=== PATIENT | female | born 1980 | race Hispanic/Latino ===

== ENCOUNTER 2022-03-25 18:39 | Emergency (ER) | payer OTHER, SELFPAY ==
--- NOTE | ~2022-03-25 | US_ITS ---
EXAMINATION: US pelvic complete w TV DATE: 03/25/2022 21:38 INDICATION: Left pelvic pain. Spotting. TECHNIQUE: Multiple transabdominal and transvaginal sonographic images of the pelvis were obtained. COMPARISON: None. FINDINGS: TRANSABDOMINAL ULTRASOUND: The uterus measures 8.4 x 5.1 x 4.9 cm. There is physiologic free fluid in the pelvis. TRANSVAGINAL ULTRASOUND: The endometrial complex measures 8 mm in thickness. The right ovary measures 2.0 x 2.0 x 1.7 cm. The left ovary measures 2.9 x 3.3 x 2.2 cm. There is normal vascular flow in the ovaries. IMPRESSION: 1. Normal pelvis. Reviewed, dictated and finalized at location A. IMPRESSION: 1. Normal pelvis.
[2022-03-25 18:49] VITALS: BP 133/61; PULSE 75; RESP 16; TEMP 36.6; O2SAT 100
[2022-03-25 19:05] LABS: Basophils Percent Auto 0.3 % (0.2-1.2); Eosinophils Percent Auto 0.4 % (0-4.4); Hematocrit 39.6 % (37.0-47.0); Hemoglobin 13.3 g/dL (12.0-15.0); Immature Granulocyte Absolute 0.02 K/mm3 (0.00-0.031); Immature Granulocyte Percent A 0.3 % (0-0.5); Lymphocytes Absolute Auto 2.59 K/mm3 (0.9-3.2); Lymphocytes Percent Auto 35.6 % (18.3-44.2); Mean Corpuscular HGB Conc 33.6 g/dl (32-36); Mean Corpuscular Hemoglobin 33.5 pg (26-34); Mean Corpuscular Volume 99.7 fl (80-100); Monocytes Absolute Auto 0.4 K/mm3 (0.1-0.6); Monocytes Percent Auto 5.8 % (2.6-8.5); Neutrophils Absolute Auto 4.2 K/mm3 (1.3-6.7); Neutrophils Percent Auto 57.6 % (45.5-73.1); Platelet Count Result 215 k/mm3 (150-375); Red Blood Count 3.97 M/mm3 (4.2-5.4); Red Cell Distribution Width 12.5 % (11.5-14.5); White Blood Count 7.3 K/mm3 (4.5-10.0)
[2022-03-25 19:17] LABS: Alanine Aminotransferase 17 U/L (6-35); Albumin Level 4.9 g/dL (3.5-5.1); Alkaline Phosphatase 86 U/L (38-126); Anion Gap 9 mmol/L (8-16); Aspartate Amino Transferase 30 U/L (14-36); Bilirubin,Total 0.3 mg/dL (0.2-1.3); Blood Urea Nitrogen 22 mg/dL (7-17); Calcium 9.8 mg/dL (8.4-10.2); Carbon Dioxide 30 mmol/L (22-30); Chloride 99 mmol/L (98-107); Estimated CRCL calculation 75 ml/min; Estimated Glomerular Filt Rate > 60; Glucose 109 mg/dL (65-110); Lipase 243 U/L (23-300); Potassium 4.1 mmol/L (3.4-5.0); Sodium 138 mmol/L (137-145)
--- NOTE | 2022-03-25 21:02 | ED.ABDPAIN ---
HPI - Abdominal Pain General Chief Complaint: Abdominal Pain Stated Complaint: abdominal pain Time Seen by Provider: 03/25/22 20:51 History of Present Illness HPI narrative: Patient is a 41-year-old female here for evaluation of sudden onset, left-sided pelvic pain that is described as sharp and stabbing in nature that onset about 3 hours ago. Patient denies a history of similar sensation. Her last menstrual cycle was 2 weeks ago and was normal for her, she does note that she has had some vaginal spotting over the past 2 days which is abnormal, denies history of bleeding in between cycles. Notes her normal amount of vaginal discharge. she contacted her OB who recommended her come to the emergency department. She denies any vomiting, nausea, fevers, chills, diarrhea, constipation. Related Data Allergies Allergy/AdvReac Type Severity Reaction Status Date / Time No Known Allergies Allergy Verified 11/25/21 10:37 Review of Systems Review of Systems: Gen: Denies fevers or chills Eyes: Denies eye pain or visual change ENT: Denies congestion Respiratory: Denies shortness of breath or cough CV: Denies chest pain or palpitations GI: Reports left-sided abdominal/pelvic pain. denies nausea, emesis or diarrhea : Reports vaginal spotting. Denies burning, urgency, frequency or hematuria Musculoskeletal: Denies back pain or muscle pain Neuro: Denies numbness, tingling, weakness or focal weakness Skin: Denies rash Except as documented, all other systems reviewed and negative PMFSH Past Medical History Medical History Anxiety Surgical History Surgical History No pertinent past surgical history Family History Family History Other Cancer of heart Dementia Depression Hypertension Lung cancer Social History Social History Smoking status: Never smoker Alcohol intake: never Substance use: never Exam Narrative: APPEARANCE: Well appearing, no pain in distress, well-nourished. Head: Normocephalic and atraumatic. EYES: PERRLA/EOMI, conjunctivae clear NOSE: No nasal drainage EARS: External ear normal in appearance THROAT: Oropharynx is clear. Mucous membranes are moist. NECK: Supple. No adenopathy, no masses. RESPIRATORY: Airway patent, respirations nonlabored. Clear to auscultation bilaterally, no rales, rhonchi, wheezing. CARDIOVASCULAR: Regular rate and rhythm without murmurs, rubs, or gallops. ABDOMINAL: Mild left-sided abdominal tenderness. Normoactive bowel sounds. Soft, nondistended. No rebound tenderness or guarding. : patient refused pelvic exam MUSCULOSKELETAL: Extremities are warm and well-perfused. Moves all extremities well. No edema. NEURO: Normal speech. No focal neurologic deficits. SKIN: Skin is warm and dry. No rashes. PSYCHIATRIC: Normal affect/mood. Course Vital Signs Vital signs: Vital Signs Temperature 97.9 F 03/25/22 18:49 Pulse Rate 75 03/25/22 18:49 Respiratory Rate 16 03/25/22 18:49 Blood Pressure 133/61 03/25/22 18:49 Pulse Oximetry 100 03/25/22 18:49 Oxygen Delivery Room Air 03/25/22 18:49 Temperature 97.9 F 03/25/22 18:49 Pulse Rate 75 03/25/22 22:34 Respiratory Rate 16 03/25/22 22:34 Blood Pressure 107/61 03/25/22 22:34 Pulse Oximetry 97 03/25/22 22:34 Oxygen Delivery Room Air 03/25/22 18:49 MDM - Abdominal Pain MDM Narrative Medical decision making narrative: 41 year old female here for evaluation of left sided pelvic pain over the past day with some menstrual spotting. Here, she is nontoxic-appearing with normal vital signs. She had slight tenderness in the left lower abdominal region. Considered ovarian cyst, ovarian torsion, ectopic , feel less likely to be GI related as patient ellis
[2022-03-25 21:11] LABS: Appearance Urine Clear (Clear); Bilirubin Urine Negative (Negative); Blood Urine Negative (Negative); Color Urine Yellow (Yellow); Glucose Urine UA Negative (Negative); Ketones Urine Trace mg/dL (Negative); Leukocyte Esterase Ur Trace LEU/UL (Negative); Nitrate Urine Negative (Negative); Protein Urine Negative (Negative); Specific Grav Ur 1.015 (1.001-1.035); Urobilinogen Urine 0.2 mg/dL (<2.0)
[2022-03-25 21:15] LABS: Squamous Epithelial Cell Urine Occasional /hpf (Few); WBC Urine 0-3 /hpf
[2022-03-25 21:16] LABS: Add Urine Microscopic? YES
[2022-03-25 22:34] VITALS: BP 107/61; PULSE 75; RESP 16; O2SAT 97
== END 2022-03-25 22:36 | disposition home or self-care (01) ==
PROVIDERS: Emergency Medicine; Emergency Provider Emergency Medicine; PCP Internal Medicine
DX: N93.8 Other specified abnormal uterine and vaginal bleeding (principal)
CPT/HCPCS: 36415; 76830; 76856; 80053; 81001; 81025; 83690; 85025; 99284

== ENCOUNTER 2022-04-16 09:17 | Emergency (ER) | payer OTHER, SELFPAY ==
--- NOTE | 2022-04-16 09:23 | ED.URI ---
HPI - URI/Sore Throat General Chief Complaint: Ear Stated Complaint: SWOLLEN THROAT/EARACHE Time Seen by Provider: 04/16/22 09:48 Source: patient and RN notes reviewed Mode of arrival: ambulatory Limitations: no limitations History of Present Illness HPI Narrative: 41-year-old female presents with concern for 3-day history of nasal congestion, sore throat, runny nose, clogged ears. Reports her kids have had similar symptoms but there is resolved after 2 days. She denies fever, bodies, chills, sweats. Reports has been using IBU MD elicited complaint: sore throat, rhinorrhea and nasal congestion Related Data Allergies Allergy/AdvReac Type Severity Reaction Status Date / Time No Known Allergies Allergy Verified 11/25/21 10:37 Review of Systems Review of Systems: CONSTITUTIONAL: Denies malaise, chills, sweats, or fever. EYES: Denies visual changes, redness, or discharge. ENT: Reports rhinorrhea, congestion, otalgia and sore throat. CARDIOVASCULAR: Denies chest pain, palpitations, or edema. RESPIRATORY: Reports cough. Denies dyspnea. GASTROINTESTINAL: Denies abdominal pain, nausea, vomiting, diarrhea SKIN: Denies rash or itching. MUSCULOSKELETAL: Denies myalgia. NEUROLOGIC: Denies headache. All systems reviewed & are unremarkable except as noted in HPI and below PMFSH Past Medical History Medical History Anxiety Surgical History Surgical History No pertinent past surgical history Family History Family History Other Cancer of heart Dementia Depression Hypertension Lung cancer Social History Social History Smoking status: Never smoker Alcohol intake: never Substance use: never Comments At time of signature, agree with nursing past medical, surgical, social and family history. There is no relevant family history pertinent to the presenting complaint Exam Narrative: GENERAL: Nontoxic appearing and in no acute distress. HEAD: Normocephalic EYES: PERRLA, conjunctivae clear ENT: Nares clear, clear discharge. Mucous membranes moist. TM pearly wilson with sharp light reflex bilaterally; no tragal tenderness. Oropharynx not erythematous without lesions. Tonsils not enlarged and without exudate, no drooling, no hoarseness, no trismus, uvula midline. NECK: Supple. No lymphadenopathy CHEST: Clear to auscultation, breath sounds equal. No wheezing, rhonchi, rales, or stridor. No respiratory distress, speaks in full sentences. HEART: Regular rate and rhythm. No murmur heard. SKIN: Warm, dry, no rash. NEURO: Alert and oriented x3. PSYCH: Normal mood and affect Course Course Emergency Course: Patient is aware of diagnosis, understands and agrees to treatment plan. Anticipatory guidance given. Patient agrees to follow-up as directed and is aware of reasons to seek care at the emergency department. Portions of this record may have been created with voice recognition software Level of Care: Express Care Visit Vital Signs Vital signs: Reviewed. MDM - URI/Sore Throat MDM Narrative Medical decision making narrative: Differential diagnosis considered: Chen virus, strep pharyngitis, allergic rhinitis, upper respiratory tract infection, sinusitis, rhinosinusitis, nasopharyngitis. viral pharyngitis, otitis media, otitis externa, pneumonia, bronchitis, viral cough syndrome, viral syndrome, and influenza. Exam findings show no acute concerns or changes; patient is non-toxic appearing and is in no distress. Patient is appropriate for outpatient treatment and follow-up. Lab Data Attestation: I reviewed the patient's lab results. Critical Care Time Critical Care Time Critical Care Time: No Discharge Plan Discharge Clinical Impression: Upper respiratory infection Patient Dispo
[2022-04-16 09:26] VITALS: BP 105/58; PULSE 91; RESP 16; TEMP 36.5; O2SAT 100
== END 2022-04-16 10:18 | disposition home or self-care (01) ==
PROVIDERS: Emergency Provider Nurse Practitioner; PCP Internal Medicine
DX: J06.9 Acute upper respiratory infection, unspecified (principal)
CPT/HCPCS: 87081; 87804; 87880; 99213; G0463

== ENCOUNTER 2022-06-18 11:33 | Emergency (ER) | payer OTHER, SELFPAY ==
--- NOTE | 2022-06-18 12:06 | PC.NURSE ---
Patient was registered and never seen by this nurse. No provider available at this facility. Patient informed and decided to leave before triage.
[2022-06-18 12:26] VITALS: BP 120/58; PULSE 96; RESP 18; TEMP 37.2; O2SAT 100
--- NOTE | 2022-06-18 13:31 | ED.GENADULT ---
HPI - General Adult General Chief complaint: Upper Respiratory Infection Stated complaint: sore throat History of Present Illness HPI narrative: 42 y/o female. PMHx None reported. Presents to [facility] today with acute complaints of nasal congestion and sore throat, worsening > the past 4 days. She reports a recent and positive Streptococcal throat exposure prior to manifestation onset. -No rash. -No fever, neck pain. -No CAN, dizziness. -No dyspnea, dysphagia, involuntary drooling. -No N/V. She reports to feel as though she is swallowing glass at times. Related Data Allergies Allergy/AdvReac Type Severity Reaction Status Date / Time No Known Allergies Allergy Verified 06/18/22 13:23 Review of Systems Review of Systems: CONSTITUTIONAL: Denies fever, chills, sweats. EYES: Denies visual changes, redness, discharge. ENT: + rhinorrhea, congestion, sore throat. No otalgia. CARDIOVASCULAR: Denies chest pain, palpitations, edema. RESPIRATORY: Denies dyspnea, wheezing. + cough GASTROINTESTINAL: Denies abdominal pain, nausea, vomiting, diarrhea. GENITOURINARY: Denies dysuria, hematuria, abnormal discharge SKIN: Denies rash or itching. MUSCULOSKELETAL: Denies acute back pain, joint pain, or myalgia. NEUROLOGIC: Denies numbness, or focal weakness. PSYCHIATRIC: Denies anxiety or depression. PMFSH Past Medical History Medical History Anxiety Surgical History Surgical History No pertinent past surgical history Family History Family History Other Cancer of heart Dementia Depression Hypertension Lung cancer Social History Social History Smoking status: Never smoker Alcohol intake: never Substance use: never Exam Narrative: GENERAL: This is a well-nourished, well-developed adult, in no apparent distress. HEAD: normocephalic, atraumatic. EYES: PERRL. Sclera clear/white. EARS: External ears normal, auditory canals clear and without drainage, TMs normal. NOSE: External nose normal. Positive Rhinorrhea, congestion, no obstruction. THROAT: Mucous membranes moist, posterior pharynx is erythematous w/mild exudative changes. Uvula midline, palate soft, no gross swelling. NECK: Neck supple, non-tender without lymphadenopathy, masses or thyromegaly. No meningeal signs. CARDIOVASCULAR: Regular rate and rhythm without murmurs, gallops, or rubs. RESPIRATORY: Clear to auscultation. Breath sounds equal bilaterally. GASTROINTESTINAL: Abdomen soft, non-tender, nondistended. SKIN: warm, intact with no suspicious lesions or rash. NEURO: Alert, active, and age appropriate. EXTREMITIES: Negative. Course Course Level of Care: Express Care Visit Vital Signs Vital signs: Vital Signs Temperature 37.2 C 06/18/22 12:26 Pulse Rate 96 06/18/22 12:26 Respiratory Rate 18 06/18/22 12:26 Blood Pressure 120/58 L 06/18/22 12:26 Pulse Oximetry 100 06/18/22 12:26 Oxygen Delivery Room Air 06/18/22 12:26 Temperature 37.2 C 06/18/22 12:26 Pulse Rate 96 06/18/22 12:26 Respiratory Rate 18 06/18/22 12:26 Blood Pressure 120/58 L 06/18/22 12:26 Pulse Oximetry 100 06/18/22 12:26 Oxygen Delivery Room Air 06/18/22 12:26 Medical Decision Making MDM Narrative Medical decision making narrative: -No hypoxemia, no respiratory distress. -Rapid Strep: Positive. -DC to home: OP ATB regimen as directed. (Macrolide 2/2 reported PCN intolerance). -Resume home OTC remedies prn for other symptomatic reliefs. -PCP F/U 1WK. -ER W/Emergent status changes. Pt agrees. Differential Diagnosis Differential Diagnosis: Differential Diagnosis: Consideration of the following conditions may be warranted for the presenting problem, they are not final diagn
== END 2022-06-18 12:52 | disposition home or self-care (01) ==
PROVIDERS: Emergency Provider Nurse Practitioner Adult Health; PCP Internal Medicine
DX: J02.0 Streptococcal pharyngitis (principal)
CPT/HCPCS: 87880; 99213; G0463

== ENCOUNTER 2022-09-25 09:45 | Emergency (ER) | payer OTHER, SELFPAY ==
[2022-09-25 10:13] VITALS: BP 87/75; PULSE 110; RESP 16; TEMP 37.2; O2SAT 100
--- NOTE | 2022-09-25 10:52 | ED.URI ---
HPI - URI/Sore Throat General Chief Complaint: Upper Respiratory Infection Stated Complaint: SORE THROAT/BODY ACHES Time Seen by Provider: 09/25/22 10:48 Source: patient Mode of arrival: ambulatory Limitations: no limitations History of Present Illness HPI Narrative: Patient presents today complaining of a 2 day history of body aches, fever up to 100.1, and sore throat. She currently rates her pain 7/10 and has tried no [id number] treatment prior to arrival. Denies any sick contacts. Reports she was treated for strep throat in July with azithromycin. Related Data Allergies Allergy/AdvReac Type Severity Reaction Status Date / Time No Known Allergies Allergy Verified 09/25/22 10:12 Review of Systems Review of Systems: CONSTITUTIONAL: Denies chills, or sweats.+ fever, body aches EYES: Denies visual changes, redness, or discharge. ENT: Denies rhinorrhea, congestion, or otalgia.+ sore throat CARDIOVASCULAR: Denies chest pain, palpitations, or edema. RESPIRATORY: Denies cough or dyspnea. GASTROINTESTINAL: Denies abdominal pain, nausea, vomiting, or diarrhea. GENITOURINARY: Denies dysuria or hematuria. SKIN: Denies rash, itching, or wounds. MUSCULOSKELETAL: Denies back pain, joint pain, or myalgia. NEUROLOGIC: Denies headache, numbness, tingling, or weakness. PSYCH: Denies depression or anxiety. [facility] Past Medical History Medical History Anxiety Surgical History Surgical History No pertinent past surgical history Family History Family History Other Cancer of heart Dementia Depression Hypertension Lung cancer Social History Social History Smoking status: Never smoker Alcohol intake: never Substance use: never Comments At time of signature, I have reviewed and agree with nursing past medical, surgical, social and family history unless otherwise noted. Please see nursing chart for further information. There is no relevant family history pertinent to the presenting complaint Exam Narrative: GENERAL: Well-appearing, well-nourished, and in no acute distress. HEAD: Normocephalic, atraumatic. EYES: EOMI. No redness or drainage. Conjunctivae normal. ENT: Mucous membranes pink and moist. Nares clear. No rhinorrhea. TMs normal bilaterally. Throat moderate erythema and edema. No exudate. Uvula midline. NECK: Normal AROM. Supple. Bilateral anterior cervical chain lymphadenopathy. CHEST: No respiratory distress. Clear to auscultation. HEART: Regular rate and rhythm. No murmur appreciated. Normal peripheral pulses. EXTREMITIES: Normal range of motion. No edema. SKIN: Warm, dry, no rash. Capillary refill normal. Normal skin turgor. NEURO: No focal deficits. Alert and oriented x3. Gait steady. PSYCH: Normal affect. No signs of depression or anxiety. Course Course Level of Care: Express Care Visit Vital Signs Vital signs: Vital Signs Temperature 99 F 09/25/22 10:13 Pulse Rate 110 H 09/25/22 10:13 Respiratory Rate 16 09/25/22 10:13 Blood Pressure 87/75 L 09/25/22 10:13 Pulse Oximetry 100 09/25/22 10:13 Temperature 99 F 09/25/22 10:13 Pulse Rate 110 H 09/25/22 10:13 Respiratory Rate 16 09/25/22 10:13 Blood Pressure 87/75 L 09/25/22 10:13 Pulse Oximetry 100 09/25/22 10:13 Reviewed MDM - URI/Sore Throat MDM Narrative Medical decision making narrative: Rapid strep positive. Prescription for amoxicillin will be sent to pharmacy. Anticipatory guidance given. Differential Diagnosis Differential diagnosis: Likely upper respiratory infection, viral infection, pharyngitis and other (Strep throat) Lab Data Attestation: I reviewed the patient's lab results. Labs: Strep Screen Positive Group A
== END 2022-09-25 10:59 | disposition home or self-care (01) ==
PROVIDERS: Emergency Provider Nurse Practitioner; PCP Internal Medicine
DX: J02.0 Streptococcal pharyngitis (principal)
CPT/HCPCS: 87880; 99213; G0463

== ENCOUNTER → 2022-10-12 10:19 | Outpatient (CLI) | payer OTHER, SELFPAY ==
--- NOTE | ~2022-10-12 | XR_ITS ---
XR hand LT min 3V DATE: 10/12/2022 10:39 INDICATION: Fifth digit pain for 2 months. No injury. TECHNIQUE: 3 views COMPARISON: None FINDINGS: No fracture or dislocation, periosteal reaction or bone destruction, joint space narrowing, erosive change or chondrocalcinosis. IMPRESSION: Negative Reviewed, dictated and finalized at location B. OFF MAN IMPRESSION: Negative
--- NOTE | ~2022-10-12 | XR_ITS ---
XR finger 5th LT min 2V DATE: 10/12/2022 10:39 INDICATION: Fifth digit pain for 2 months TECHNIQUE: 4 views COMPARISON: None FINDINGS: No fracture or dislocation, periosteal reaction or bone destruction, joint space narrowing, erosive change. No subcutaneous emphysema or radiopaque soft tissue foreign body. IMPRESSION: Negative Reviewed, dictated and finalized at location B. ANALYSIS SUPERVISOR IMPRESSION: Negative
== END ==
PROVIDERS: PCP Internal Medicine; Visit Provider Internal Medicine
DX: S69.92XA Unspecified injury of left wrist, hand and finger(s), initial encounter (principal); X58.XXXA Exposure to other specified factors, initial encounter
CPT/HCPCS: 73130; 73140

== ENCOUNTER 2023-05-08 12:46 | Outpatient (CLI) | payer OTHER, SELFPAY ==
--- NOTE | ~2023-05-08 | US_ITS ---
Pelvic ultrasound. Clinical History: Hypertrophy of uterus Technique: Realtime transabdominal and transvaginal scanning of the pelvis was performed. Color flow Doppler and Doppler spectral analysis were performed. Findings: The uterus is anteverted, and measures 9.1 x 4.9 x 6.6 cm. The endometrial stripe has a th ickness of 19 mm. No focal mass is identified. The right ovary measures 2.4 x 1.4 x 2.0 cm. No significant right ovarian or adnexal mass is seen. The left ovary measures 1.7 x 1.8 x 1.9 cm. No significant left ovarian or adnexal mass is seen. There is no evidence of free fluid in the cul de sac. Impression: Unremarkable pelvic ultrasound. Reviewed, dictated and finalized at [facility]. Impression: Unremarkable pelvic ultrasound.
== END 2023-05-08 12:47 ==
PROVIDERS: PCP Internal Medicine; Visit Provider Obstetrics & Gynecology
DX: N85.2 Hypertrophy of uterus (principal)
CPT/HCPCS: 76830; 76856

== ENCOUNTER 2023-05-23 15:24 | Outpatient (CLI) | payer OTHER, SELFPAY ==
[2023-05-23 18:41] LABS: Alanine Aminotransferase 18 U/L (6-35); Albumin Level 4.5 g/dL (3.5-5.1); Alkaline Phosphatase 78 U/L (38-126); Anion Gap 8 mmol/L (8-16); Aspartate Amino Transferase 38 U/L (14-36); Bilirubin,Total 0.4 mg/dL (0.2-1.3); Blood Urea Nitrogen 21 mg/dL (7-17); Calcium 9.1 mg/dL (8.4-10.2); Carbon Dioxide 29 mmol/L (22-30); Chloride 101 mmol/L (98-107); Estimated Glomerular Filt Rate > 60; Glucose 101 mg/dL (65-110); Potassium 3.9 mmol/L (3.4-5.0); Sodium 138 mmol/L (137-145)
[2023-05-23 19:01] LABS: Immunoglobulin A 187 mg/dL (70-400)
[2023-05-23 19:18] LABS: Thyroid Stimulating Hormone Reflex 0.921 uIU/mL (0.465-4.68)
[2023-05-23 19:30] LABS: Basophils Percent Auto 0.2 % (0.2-1.2); Eosinophils Percent Auto 0.2 % (0-4.4); Hematocrit 39.5 % (37.0-47.0); Hemoglobin 12.8 g/dL (12.0-15.0); Immature Granulocyte Absolute 0.02 K/mm3 (0.00-0.031); Immature Granulocyte Percent A 0.2 % (0-0.5); Lymphocytes Percent Auto 23.1 % (18.3-44.2); Mean Corpuscular HGB Conc 32.4 g/dl (32-36); Mean Corpuscular Hemoglobin 33.2 pg (26-34); Mean Corpuscular Volume 102.3 fl (80-100); Mean Platelet Volume 12.1 fl (7.4-10.4); Monocytes Absolute Auto 0.4 K/mm3 (0.1-0.6); Monocytes Percent Auto 4.6 % (2.6-8.5); Neutrophils Absolute Auto 6.2 K/mm3 (1.3-6.7); Neutrophils Percent Auto 71.7 % (45.5-73.1); Platelet Count Result 238 k/mm3 (150-375); Red Blood Count 3.86 M/mm3 (4.2-5.4); Red Cell Distribution Width 12.7 % (11.5-14.5); White Blood Count 8.7 K/mm3 (4.5-10.0)
[2023-05-26 00:44] LABS: Tissue Transglutaminase IgA Ab <1.0 U/mL (<15.0)
== END 2023-05-23 15:25 | disposition home or self-care (01) ==
LOC: ANHGOSHLAB 15:25
PROVIDERS: PCP Internal Medicine; Visit Provider Emergency Medicine
DX: F41.1 Generalized anxiety disorder (principal); R19.7 Diarrhea, unspecified
CPT/HCPCS: 36415; 80053; 82784; 84443; 85025; 86364

== ENCOUNTER 2023-06-01 10:32 | Outpatient (CLI) | payer OTHER, SELFPAY ==
[2023-06-05 18:58] LABS: H pylori Ag Stool Not Detected (Not Detected)
== END 2023-06-01 10:33 | disposition home or self-care (01) ==
LOC: ANHLAB 10:34
PROVIDERS: PCP Emergency Medicine; Visit Provider Emergency Medicine
DX: R10.9 Unspecified abdominal pain (principal)
CPT/HCPCS: 87338

== ENCOUNTER 2023-06-06 15:32 | Emergency (ER) | payer OTHER, SELFPAY ==
[2023-06-06 15:41] VITALS: BP 112/65; PULSE 78; RESP 16; TEMP 36.9; O2SAT 100
--- NOTE | 2023-06-06 15:58 | ED.URI ---
HPI - URI/Sore Throat General Chief Complaint: Upper Respiratory Infection Stated Complaint: TIRED/FEVER/SORE THROAT Time Seen by Provider: 06/06/23 15:58 Source: patient, RN notes reviewed and old records reviewed Mode of arrival: ambulatory Limitations: no limitations History of Present Illness HPI Narrative: 43 year old female who presents to [facility] care with complaints of waking this morning with low grade fever 100F, congestion,yesterday evening felt stuffy and fatigued. Patient reports that kids have all been ill at home she thinks probably got something from them.Patient reports mild sore throat which she rates as 2/10. Patient has not taken any OTC medications for her complaints. MD elicited complaint: cough and sore throat Onset (ago): hour(s) (this morning) Severity: mild Pain scale (0-10): 2 Able to tolerate fluids by mouth: Yes Treatments prior to arrival: none Related Data Home Medications Medication Instructions Recorded Confirmed No Home Medications 05/03/23 05/23/23 Allergies Allergy/AdvReac Type Severity Reaction Status Date / Time No Known Allergies Allergy Verified 05/23/23 14:32 Review of Systems Review of Systems: CONSTITUTIONAL: Denies malaise, chills, sweats, low grade fever this morning. EYES: Denies visual changes, redness, or discharge. ENT: Reports rhinorrhea, congestion, no sinus pain, no otalgia and positive for sore throat. CARDIOVASCULAR: Denies chest pain, palpitations, or edema. RESPIRATORY: Reports no cough.? Denies dyspnea. GASTROINTESTINAL: Denies abdominal pain, nausea, vomiting, diarrhea SKIN: Denies rash or itching. MUSCULOSKELETAL: Denies myalgia. NEUROLOGIC: Denies headache. states fatigue All systems reviewed & are unremarkable except as noted in HPI and below PMFSH Past Medical History Medical History Anxiety BMI 27.0-27.9,adult Surgical History Surgical History No pertinent past surgical history Family History Family History Father Dementia Mother No problems noted. Sibling Hyperlipidemia Other Cancer of heart Depression Hypertension Lung cancer Social History Social History Smoking status: Never smoker Second hand tobacco smoke exposure: No Alcohol intake: never Substance use: never Substance use type: does not use Lack of Transportation: No Lack of Food: Never True Current Housing: I Have Housing Concerned About Future Housing: No Difficulty Paying Gas/Electric Bills: No Difficulty Paying for Meds: No Currently Unemployed: No Education: Bachelor's Degree Difficulty w/ Childcare or Family Care: No Living arrangements: with family Occupation/Education: occupation Additional occupation/education comments: stay at home mother Gender identity (if verbalized by the patient): Female Comments At time of signature, agree with nursing past medical, surgical, social and family history. There is no relevant family history pertinent to the presenting complaint Exam Narrative: GENERAL: Well-appearing, well-nourished, and in no acute distress. HEAD: Normocephalic EYES: PERRLA, conjunctivae clear ENT: Nares clear, turbinates edematous and erythematous, clear discharge. Mucous membranes moist. TM pearly wilson with dull light reflex bilaterally; no tragal tenderness. Oropharynx erythematous without lesions. Tonsils not enlarged and without exudate, no drooling, no hoarseness, no trismus, uvula midline. NECK: Supple. No lymphadenopathy CHEST: Clear to auscultation, breath sounds equal. No wheezing, rhonchi, rales, or stridor. No respiratory distress, speaks in full sentences.SAO2 100% on room air HEART: Regular rate and rhythm. No murmur heard. SKIN: Warm, dry, no
== END 2023-06-06 16:27 | disposition home or self-care (01) ==
PROVIDERS: Emergency Provider Registered Nurse; PCP Emergency Medicine
DX: J06.9 Acute upper respiratory infection, unspecified (principal); Z20.822 Contact with and (suspected) exposure to COVID-19
CPT/HCPCS: 87081; 87426; 87804; 87880; 99213; C9803; G0463

== ENCOUNTER 2024-01-31 08:36 | Outpatient (CLI) | payer OTHER, SELFPAY ==
[2024-01-31 19:25] LABS: Basophils Percent Auto 0.3 % (0.2-1.2); Eosinophils Percent Auto 0.3 % (0-4.4); Hematocrit 40.6 % (37.0-47.0); Hemoglobin 13.2 g/dL (12.0-15.0); Immature Granulocyte Absolute 0.02 K/mm3 (0.00-0.031); Immature Granulocyte Percent A 0.3 % (0-0.5); Lymphocytes Absolute Auto 2.45 K/mm3 (0.9-3.2); Lymphocytes Percent Auto 31.7 % (18.3-44.2); Mean Corpuscular HGB Conc 32.5 g/dl (32-36); Mean Corpuscular Hemoglobin 33.2 pg (26-34); Mean Corpuscular Volume 102.3 fl (80-100); Mean Platelet Volume 12.1 fl (7.4-10.4); Monocytes Absolute Auto 0.4 K/mm3 (0.1-0.6); Monocytes Percent Auto 5.3 % (2.6-8.5); Neutrophils Absolute Auto 4.8 K/mm3 (1.3-6.7); Neutrophils Percent Auto 62.1 % (45.5-73.1); Platelet Count Result 221 k/mm3 (150-375); Red Blood Count 3.97 M/mm3 (4.2-5.4); Red Cell Distribution Width 12.9 % (11.5-14.5); White Blood Count 7.7 K/mm3 (4.5-10.0)
[2024-01-31 19:32] LABS: Alanine Aminotransferase 14 U/L (6-35); Albumin Level 4.5 g/dL (3.5-5.1); Alkaline Phosphatase 71 U/L (38-126); Anion Gap 6 mmol/L (4-12); Aspartate Amino Transferase 33 U/L (14-36); Bilirubin,Total 0.4 mg/dL (0.2-1.3); Blood Urea Nitrogen 14 mg/dL (7-17); Calcium 9.5 mg/dL (8.4-10.2); Carbon Dioxide 31 mmol/L (22-30); Chloride 105 mmol/L (98-107); Estimated Glomerular Filt Rate > 60; Glucose 97 mg/dL (65-110); Lipase 190 U/L (23-300); Potassium 4.3 mmol/L (3.4-5.0); Sodium 142 mmol/L (137-145)
== END 2024-01-31 08:37 | disposition home or self-care (01) ==
LOC: ANHGOSHLAB 08:38
PROVIDERS: PCP Emergency Medicine; Visit Provider Emergency Medicine
DX: R10.9 Unspecified abdominal pain (principal)
CPT/HCPCS: 36415; 80053; 83690; 85025

== ENCOUNTER 2024-02-27 10:03 | Outpatient (CLI) | payer OTHER, SELFPAY ==
--- NOTE | ~2024-02-27 | MR_ITS ---
EXAMINATION: MR brain/brain stem wo con DATE: 02/27/2024 10:36 INDICATION: Dizziness and giddiness TECHNIQUE: Magnetic resonance imaging (MRI) of the brain and brainstem was performed without intraven ous contrast. Sequences included sagittal and axial T1-weighted SE, axial diffusion-weighted FS SE, a xial T2*-weighted GRE, axial T2-weighted FLAIR, and axial T2-weighted FSE. Postcontrast axial and cor onal T1-weighted SE was obtained. Apparent diffusion coefficient (ADC) maps were created. COMPARISON: None. FINDINGS: There are no areas of restricted diffusion to suggest acute infarction. No intracranial hemorrhage or abnormal intracranial mass lesion. There are scattered areas of nonspecific increased T2-weighted si gnal intensity in the cerebral white matter much of which appears to represent mildly prominent periv ascular spaces. There are no intraparenchymal signal abnormalities seen on the other pulse sequences. The ventricles are symmetric and normal in size. There are no abnormal extra-axial fluid collections . Flow voids are seen in the cerebral arteries on the T2-weighted sequences consistent with their exp ected patency. Visualized orbits and soft tissues are unremarkable. IMPRESSION: 1. No acute intracranial process. 2. Multiple scattered T2 hyperintense lesions in the brain appear primarily to represent prominent pe rivascular spaces which is atypical for age but of indeterminate etiology. The more general different ial for increased number of T2 hyperintense lesions for age would include cerebral white matter disea se. The differential diagnosis includes premature chronic small vessel ischemic disease (especially i f the patient has cardiovascular risk factors), demyelinating disease such as multiple sclerosis, willy g abuse, vasculitis, or reactive astrocytosis (gliosis) secondary to nonspecific etiology. Reviewed, dictated and finalized at location A. IMPRESSION: 1. No acute intracranial process. 2. Multiple scattered T2 hyperintense lesions in the brain appear primarily to represent prominent perivascular spaces which is atypical for age but of indete rminate etiology. The more general differential for increased number of T2 hype rintense lesions for age would include cerebral white matter disease. The diffe rential diagnosis includes premature chronic small vessel ischemic disease (ashley ecially if the patient has cardiovascular risk factors), demyelinating disease such as multiple sclerosis, drug abuse, vasculitis, or reactive astrocytosis (g liosis) secondary to nonspecific etiology.
== END 2024-02-27 10:04 ==
LOC: MICIMG 10:04
PROVIDERS: PCP Emergency Medicine; Visit Provider Emergency Medicine
DX: R42 Dizziness and giddiness (principal)
CPT/HCPCS: 70551

== ENCOUNTER 2024-06-19 12:50 | Outpatient (CLI) | payer OTHER, SELFPAY ==
[2024-06-19 19:41] LABS: Hematocrit 32.4 % (37.0-47.0); Hemoglobin 10.8 g/dL (12.0-15.0); Mean Corpuscular HGB Conc 33.3 g/dl (32-36); Mean Corpuscular Hemoglobin 33.9 pg (26-34); Mean Corpuscular Volume 101.6 fl (80-100); Mean Platelet Volume 10.8 fl (7.4-10.4); Platelet Count Result 294 k/mm3 (150-375); Red Blood Count 3.19 M/mm3 (4.2-5.4); Red Cell Distribution Width 13.2 % (11.5-14.5); White Blood Count 8.6 K/mm3 (4.5-10.0)
== END 2024-06-19 12:51 | disposition home or self-care (01) ==
LOC: ANHGOSHLAB 12:51
PROVIDERS: PCP Emergency Medicine; Visit Provider Obstetrics & Gynecology
DX: N93.9 Abnormal uterine and vaginal bleeding, unspecified (principal)
CPT/HCPCS: 36415; 83001; 84443; 85027

== ENCOUNTER 2024-11-05 09:34 | Outpatient (CLI) | payer OTHER, SELFPAY ==
--- OUTSIDE RECORDS SUMMARY | 2024-11-05 10:17 | XMS_ITS | Encounter Summary ---
Author Organization [facility] Address [address] [place] [address] Care Team Providers Care Electric Knife Operator Name Role Phone Vandana Kirkpatrick Primary Care Provider [phone] Encounter Details Date Type Department Care Team ([facility] st Contact Info) Description 06/12/2023 Varolii Message Enc [facility] Family Medicine - [place] [address] [place] [address] [facility], [facility] Provider Screening Social History Tobacco Use Types Packs/Day Years Used Date Smoking Tobacco: Never Smokeless Tobacco: Never Alcohol Use Standard Drinks/Week Comments Yes 0 (1 standard drink = 0.6 oz pur e alcohol) AUDIT-C Answer Date Recorded Frequency of Alcohol Consumption 2-4 times a mon04/10/2019 Average Number of Drinks 3 or 4 019 Frequency of Binge Drinking Not on file 11/2018 PHQ-2 Answer Date Recorded PHQ-2 Score 0 07/16/2019 Comments Unknown Sex and Gender Information Value Date Recorded Sex Assigned at Not on file Legal Sex Female 10:50 AM CDT Gender Identity Not on file Sexual Orientation Not on file documented as of this encounter Plan of Treatment Not on file documented as of this encounter Visit Diagnoses Not on filedocumented in this encounter Additional Health Concerns Assessment Noted Time PHQ-9 Depression Total Score: 2 04/10/20 19 1:34 PM CDT documented as of this encounter Care Teams Electric Knife Operator Relationship Specialty Start Date End Date Vandana Kirkpatrick APNP [address] [place] [address] PCP - General NURSE PRACTITIONER 04/10/19 06/12/23 documented as of this encounter
--- OUTSIDE RECORDS SUMMARY | 2024-11-05 10:17 | XMS_ITS | Clinical Summary ---
Author Organization [facility] Address [address] [facility] [place] [address] Care Team Providers Care Briar Shop Supervisor Name Role Phone Lisy Tripathi MD Primary Care Provider [phone] Charlie Carpenter MD Unavailable [phone] Source Comments [facility],non-owned Affiliates and Associated Physician Practices is amultiple site organization consisting of ambulatory clinics and hospital sitesin [place], [place], [place] and [place]. This disclosure is being madepursuant to the Care Everywhere program and may not contain all information available regarding this patient. Last updated 18.[facility] Allergies No known active allergies Medications * Be aware that medications may not be up to date on this document. Alwaysverify current medications with the patient. Medication Sig Dispensed Refills Start Date End Date Status Multiple Vitamin (MULTIVITAMIN ADULT PO) Take 2 tablets by mouth once daily Active fluticasone propionate (Flonase) 50 MCG/ACT nasal spray [place] 2 (two) sprays into each nostril as needed Active Active Problems Problem Noted Date Diagnosed Date Dizziness 05/25/2019 Anxiety 04/10/2019 Closed nondisplaced fracture of right great toe with delayed healing 04/10/2019 Menorrhagia with regular cycle 04/10/2019 Anemia 03/19/2013 Adjustment disorder with depressed mood 09/10/19 12 Family History Medical History Relation Name Comments Diabetes - Type 2 Brother Hypertension Brother Relation Name Status Comments Brother Social History Tobacco Use Types Packs/Day Years Used Date Smoking Tobacco: Never Smokeless Tobacco: Never PHQ-2 Answer Date Recorded PHQ2 TOTAL SCORE 0 07/04/2022 Sex and Gender Information Value Date Recorded Sex Assigned at Not on file Gender Identity Not on file Sexual Orientation Not on file Last Filed Vital Signs Vital Sign Reading Time Taken Comments Blood Pressure 96/78 07/04/2022 10:49 AM TERMINAL SYSTEM OPERATOR Pulse 90 07/04/2022 10:49 AM TERMINAL SYSTEM OPERATOR Temperature 36.3 C (97.3 F) 07/04/2022 10:49 AM TERMINAL SYSTEM OPERATOR Respiratory Rate 16 06/15/2020 10:06 AM TERMINAL SYSTEM OPERATOR Oxygen Saturation 100% 07/04/2022 10:49 AM TERMINAL SYSTEM OPERATOR Inhaled Oxygen Concentration - - Weight 61.4 kg (135 lb 6.4 oz) 07/04/2022 10:49 AM TERMINAL SYSTEM OPERATOR Height 160 cm (5' 3 ) 06/15/2020 10:06 AM TERMINAL SYSTEM OPERATOR Body Mass Index 23.99 06/15/2020 10:06 AM TERMINAL SYSTEM OPERATOR Plan of Treatment Health Maintenance Due Date Last Done Comments COLOGUARD (AGES 45-75) - COLON CA SCREENING 1979 COLON MONITORING 1979 COLONOSCOPY - COLON CA SCREENING 1979 CT COLONOGRAPHY - COLON CA SCREENING 1979 Colorectal Cancer Screening 1979 FIT - COLON CA SCREENING 1979 FLEX SIG - COLON CA SCREENING 1979 LIPID TESTING 1979 MAMMOGRAM 1979 PAP SMEAR 1979 HIV SCREENING 1994 HEPATITIS C SCREENING 05/17/1997 DTAP/TDAP/TD VACCINES (1 - Tdap) 1998 HEPATITIS B VACCINE (1 of 3 - 19+ 3-dose series) 1998 COVID-19 VACCINE ( - season) 2024 INFLUENZA VACCINE (#1) 2024 9, 05/23/2019, 05/11/2018, Additional history exists DEPRESSION SCREENING 08/07/2024 08/04/2022, 07/04/20 22 ZOSTER VACCINE (1 of 2) 2029 HIB VACCINE Aged Out No longer eligi ble based on patient's age to complete this topic HPV VACCINE Aged Out No longer eligi ble based on patient's age to complete this topic MENINGOCOCCAL (Group B) VACCINE SHARED DECISION-MAKING Aged Out No longer eligible based on patient's age to complete this topic MENINGOCOCCAL GROUPS A/C/Y/W VACCINE Aged Out No longer eligible based on patient's age to complete this topic PNEUMOCOCCAL VACCINE Aged Out No long er eligible based on patient's age to complete this topic Care Teams Briar Shop Supervisor Relationship Specialty Start Date End Date Lisy Tripathi MD [address] [place] [address] PCP - General Internal Medicine 07/04/22 Charlie Carpenter MD [address] [place] [address] Electrophysiology 07/04/22
--- OUTSIDE RECORDS SUMMARY | 2024-11-05 10:17 | XMS_ITS | Clinical Summary ---
Author Organization [facility] Address [address] [place] [address] Care Team Providers Care Inweaver Name Role Phone Unavailable Primary Care Provider Unavailabl e Allergies Active Allergy Reactions Criticality Noted Date Comments Amoxicillin Other (see comment) 12/05/2014 B/l leg edema Medications tranexamic acid 650 MG tablet TK 2 TS PO TID FOR FIRST 1 TO 5 DAYS OF CYCLE PRF HEAVY PERIODS 1 02/01/2019 Active Active Problems Problem Noted Date Diagnosed Date Dizziness 05/25/2019 Anxiety 04/10/2019 Closed nondisplaced fracture of phalanx of right great toe with delayed healing, unspecified phalanx, subsequent encounter 04/10/2019 Menorrhagia with regular cycle 04/10/2019 Anemia 03/19/2013 Adjustment disorder with depressed mood 09/10/19 12 Immunizations Name Administration Dates Next Due Fluzone 6 Months+ Quad (0.5 mL Prefilled Syringe) 05/24/2019 Influenza Adult (Generic) 05/11/2018,,04/22/2016, 015 Tdap (Generic) 04/22/2016, 3,03/08/2010, 010 Family History Medical History Relation Comments Hypertension Brother 1 Depression Brother 2 Diabetes Brother 2 Hypertension Brother 2 Hypertension Brother 3 Dementia Father Diabetes Father Hypertension Father Mental Health Father Dementia Cancer Maternal Grandfather liver?? Heart Disease Maternal Grandfather Relation Status Comments Brother 1 Brother 2 Brother 3 Father Maternal Grandfather Social History Tobacco Use Types Packs/Day Years [...] Sign Reading Time Taken Comments Blood Pressure 114/73 07/24/2019 10:31 AM DATA ANALYTICS ANALYST Pulse 85 07/24/2019 10:31 AM DATA ANALYTICS ANALYST Temperature 37.3 C (99.2 F) 07/24/2019 10:31 AM DATA ANALYTICS ANALYST Respiratory Rate 14 07/24/2019 10:31 AM DATA ANALYTICS ANALYST Oxygen Saturation 99% 07/24/2019 10:31 AM DATA ANALYTICS ANALYST Inhaled Oxygen Concentration - - Weight 59.9 kg (132 lb) 07/24/2019 10:31 AM DATA ANALYTICS ANALYST Height 158 cm (5' 2.21 ) 07/24/2019 10:31 AM DATA ANALYTICS ANALYST Body Mass Index 23.98 07/24/2019 10:31 AM DATA ANALYTICS ANALYST Plan of Treatment Health Maintenance Due Date Last Done Comments Cervical Cancer Screening Pap Smear (Age 30 to 64) Every 3 Years 1979 Colorectal Cancer Screening Colonoscopy (10 Years) 1979 Annual Physical 1982 Hepatitis C 1997 Hepatitis B Vaccines (1 of 3 - 19+ 3-dose series) 1998 Cervical Cancer Screening Pap with HPV Testing (Age 30 to 64) Every 5 Years 2009 Cervical Cancer Screening with HPV 2009 Mammogram Screening 2019 COVID-19 Vaccine ( season) 2024 PHQ-2 (Physician [place]) 08/07/2024 DTaP, Tdap and Td Vaccines (5 - Td or Tdap) 04/22/2026 04/22/2016, 12/05/2012, 03/08/2010, Additional history exists HPV Vaccines Aged Out No longer eligi ble based on patient's age to complete this topic Meningococcal B Vaccine Aged Out No l onger eligible based on patient's age to complete this topic Meningococcal Vaccine Aged Out No james leslee eligible based on patient's age to complete this topic Pneumococcal Vaccine: Pediatrics (0 to 5 Years) and At-Risk Patients (6 to 64 Years) Aged Out No longer eligible based on patient's age to complete this topic RSV Immunizations Under 20 Months Aged Out No longer eligible based on patient's age to complete this topic Insurance [facility]
--- OUTSIDE RECORDS SUMMARY | 2024-11-05 10:17 | XMS_ITS | Clinical Summary ---
Author Organization [address] Address [address] [place] [address] Care Team Providers Care Intern Brand Name Role Phone Charlie Carpenter MD Unavailable [phone] Mekhi Quintanilla MD Primary Care Provider [phone] Allergies Active Allergy Reactions Criticality Noted Date Comments Amoxicillin Other (See comments) Low 12/05/2014 B/l leg edema B/l leg edema Medications multivitamin-ir on-folic acid 18-400 mg-mcg tablet Take 2 tablets by mouth daily Active SUMAtriptan (IMITREX) 25 mg tablet 3 Active amitriptyline (ELAVIL) 25 mg tablet Take 1 tablet (25 mg total) by mouth nightly 90 tablet 3 4 Active tiZANidine (ZANAFLEX) 4 mg tablet Take 1 tablet (4 mg total) by mouth 3 (three) times a day as needed 5 Active diazePAM (VALIUM) 5 mg tablet Take 1 tablet (5 mg total) by mouth once for 1 dose 1 tablet 4 10/31/19 25 Discontinue d(Therapy completed) doxycycline (VIBRAMYCIN) 100 mg capsuleIndicati ons:Acute maxillary sinusitis, recurrence not specified Take 1 tablet/capsu le (100 mg total) by mouth 2 (two) times a day for 7 days 14 tablet/capsu le 5 10/21/19 25 Active Problems No known active problems Encounters Date Type Department Care Team Description 10/30/2024 10:00 AM CDT Office Visit [facility] Neurology [address] [facility] Medical Office Building [address], [address] [place] [address] Dylan Nunez MD White matter abnormality on MRI of brain (Primary Dx); Lacunar stroke (HCC); Hyperglycemia 10/13/2024 2:30 PM CDT Office Visit [facility] at [address] [address] Megan Montalvo NP Acute maxillary sinusitis, recurrence not specified (Primary Dx); Tachycardia from Last 3 Months Medical History Medical History Date Comments Dizziness 05/20/2019 Migraine Ear problems 04/2022 Anxiety Anemia Family History Medical History Relation Name Comments Hypertension Brother 1 Kiko Snoring Brother 2 Hugo Snoring Father Yasmany Snoring Mother Idania Relation Name Status Comments Brother 1 Kiko Brother 2 Hugo Father Yasmany Maternal Grandfather Mother Idania Paternal Grandfather Social History Tobacco Use Types Packs/Day Years Used Date Smoking Tobacco: Never Smokeless Tobacco: Never Tobacco Cessation:Counseling Given: Not Answered AUDIT-C Answer Date Recorded Frequency of Alcohol Consumption Not on file 07/02/2024 Q2: How many drinks containi ng alcohol do you have on a typical day when you are drinking? Patient does not drink Frequency of Binge Drinking Not on file 06/08 Comments Unknown Sex and Gender Information Value Date Recorded Sex Assigned at Not on file Legal Sex Female 9:34 PM CDT Gender Identity Female 11/15/2022 4:26 PM CDT Sexual Orientation Not on file Obstetrics History Last Filed Vital Signs Vital Sign Reading Time Taken Comments Blood Pressure 116/78 10/30/2024 9:40 AM CDT Pulse 94 10/30/2024 9:40 AM CDT Temperature 36.5 C (97.7 F) 10/30/2024 9:40 AM CDT Respiratory Rate 20 10/30/2024 9:40 AM CDT Oxygen Saturation 99% 10/30/2024 9:40 AM CDT Inhaled Oxygen Concentration - - Weight 74.8 kg (164 lb 12.8 oz) 10/30/2024 9:40 AM CDT Height 160 cm (5' 3 ) 10/30/2024 9:40 AM CDT Body Mass Index 29.19 10/30/2024 9:40 AM CDT Plan of Treatment Health Maintenance Due Date Last Done Comments Cervical Cancer Screening 1979 Colon Cancer Screening-Colonoscopy 1979 Depression Screening 1979 Hepatitis C Screening 1979 Hepatitis B Screening 1997 Regular Well Visit/Exam 18-64 1997 Covid-19 Vaccine ( season) 2024 03/31/2021, 03/10/2021 Influenza Vaccine (#1) 2024 9, 05/11/2018, 04/06/2017, Additional history exists Breast Cancer Screening-Mammogram 03/28/2025 03/28/2024, 11/21/2022 DTaP/Tdap/Td Vaccine (5 - Td or Tdap) 04/22/2026 04/22/2016, 12/05/2012, 03/08/2010, Additional history exists HPV Vaccines Aged Out No longer eligi ble based on patient's age to complete this topic Pneumococcal vaccine <65 Aged Out No longer eligible based on patient's age to complete this topic Procedures Procedure Name Priority Date/Time Associated Diagnosis Comments SCREENING MAMMOGRAM BILATERAL W THEODORE Schedule Routine, Read Routine (OP Routine) 03/28/2024 10:47 AM CDT Screening mammogram, encounter for from Last 3 Months or Most Recently Relevant to Health Maintenance Results * Screening Mammogram Bilateral W Theodore (03/28/2024 10:47 AM CDT) Anatomical Region Laterality Modality Breast Bilateral Mammography Narrative 03/29/2024 1:13 PM CDT Mammogram Technique: Bilateral Digital Breast Tomosynthesis, Bilateral C-view 2D Screening mammogram. Views obtained: bilateral craniocaudal and bilateral mediolateral oblique. Computer Aided Detection was performed. Mammogram Findings: The present examination has been compared to a prior imaging study performed at [facility] on 11/21/2022. The breasts are heterogeneously dense, which may obscure small masses. There is no suspicious abnormality in either breast. Impression: There is no mammographic evidence of malignancy. Annual screening mammography is recommended. If supplemental screening is desired, breast MRI would be recommended in this patient with heterogeneously dense breasts. OVERALL FINAL ASSESSMENT: BI-RADS CATEGORY 1: Negative. Procedure Note Ame Roman MD - 03/29/2024 Mammogram Technique: Bilateral Digital Breast Tomosynthesis, Bilateral C-view 2D Screening mammogram. Views obtained: bilateral craniocaudal and bilateral mediolateral oblique. Computer Aided Detection was performed. Mammogram Findings: The present examination has been compared to a prior imaging study performed at [facility] on 11/21/2022. The breasts are heterogeneously dense, which may obscure small masses. There is no suspicious abnormality in either breast. Impression: There is no mammographic evidence of malignancy. Annual screening mammography is recommended. If supplemental screeningis desired, breast MRI would be recommended in this patient with heterogeneously dense breasts. OVERALL FINAL ASSESSMENT: BI-RADS CATEGORY 1: Negative. us Self Screening Mammogram IMG MAMMO PROCEDURES Fi nal Result from Last 3 Months or Most Recently Relevant to Health Maintenance Insurance [employer] [address] [facility] PL[facility] Care Teams Intern Brand Relationship Specialty Start Date End Date Mekhi Quintanilla MD [address] [place] [address] [facility] [address] [place] [address] PCP - General Family Medicine 02/20/24 Charlie Carpenter MD [facility] [address] [place] [address] Referring Physician Internal Medicine 09/20/22
--- OUTSIDE RECORDS SUMMARY | 2024-11-05 10:17 | XMS_ITS | Referral Summary ---
Author Organization [address] Address [address] [place] [address] Care Team Providers Care Grievance And Appeals Coordinator Name Role Phone Charlie Carpenter MD Unavailable [phone] Mekhi Quintanilla MD Primary Care Provider [phone] Encounters Date Type Department Care Team Description 10/30/2024 10:00 AM CDT Office Visit [facility] Neurology [address] [place] [address] Medical Office [address], [address] [place] [address] Dylan Nunez MD White matter abnormality on MRI of brain (Primary Dx); Lacunar stroke (HCC); Hyperglycemia 10/13/2024 2:30 PM CDT Office Visit [facility] Care at [address] [address] Megan Montalvo NP Acute maxillary sinusitis, recurrence not specified (Primary Dx); Tachycardia from Last 3 Months Allergies Active Allergy Reactions Criticality Noted Date [...] 25 Active Problems No known active problems Social History Tobacco Use Types Packs/Day Years Used Date Smoking Tobacco: Never Smokeless Tobacco: Never Tobacco Cessation:Counseling Given: Not Answered AUDIT-C Answer Date Recorded Frequency of Alcohol Consumption Not on file 07/02/2024 Q2: How many drinks containi ng alcohol do you have on a typical day when you are drinking? Patient does not drink 4 Frequency of Binge Drinking Not on file 06/08 Comments Unknown Sex and Gender Information Value Date Recorded Sex Assigned at Not on file Legal Sex Female 9:34 PM CDT Gender Identity Female 11/15/2022 4:26 PM CDT Sexual Orientation Not on file Last Filed [...] 10/30/2024 9:40 AM CDT Plan of Treatment Not on file Procedures Procedure Name Priority Date/Time Associated Diagnosis [...] to a prior imaging study performed at [facility] on 11/21/2022. The breasts are heterogeneously [...] to a prior imaging study performed at [facility] on 11/21/2022. The breasts are heterogeneously [...] Most Recently Relevant to Health Maintenance Insurance [facility] HMO/POS [facility] CHOICE PLUS [facility] PL[facility] Member Subscriber Plan / Payer (Ef fective 2024-Present) Name:Miranda Webb Relation to Subscriber:Spouse Name:KERWIN WEBB Date of :1977 Address: [address] [place], [place] [id number] Payer ID:[id number] (NAIC) Type:[facility] HMO/PPO Address: [place] [id number] Care Teams Grievance And Appeals Coordinator Relationship Specialty Start Date End Date Mekhi Quintanilla MD [address] [facility] [address] [place] [address] PCP - General Family Medicine 02/20/24 Charlie Carpenter MD [facility] [address] [place] [address] Referring Physician Internal Medicine 09/20/22
[2024-11-05 13:57] LABS: Hematocrit 38.2 % (37.0-47.0); Hemoglobin 12.6 g/dL (12.0-15.0); Mean Corpuscular Hemoglobin 32.2 pg (26-34); Mean Corpuscular Volume 97.7 fl (80-100); Mean Platelet Volume 11.4 fl (7.4-10.4); Platelet Count Result 252 k/mm3 (150-375); Red Blood Count 3.91 M/mm3 (4.2-5.4); Red Cell Distribution Width 13.8 % (11.5-14.5); White Blood Count 5.9 K/mm3 (4.5-10.0)
[2024-11-05 14:26] LABS: Cholesterol 234 mg/dL (0-200); HDL Direct 41 mg/dL; Triglycerides 116 mg/dL (<150)
[2024-11-05 14:38] LABS: LDL Cholesterol Direct 153 mg/dL
[2024-11-05 15:56] LABS: Hemoglobin A1C 5.9 % (<5.7)
== END 2024-11-05 09:35 | disposition home or self-care (01) ==
LOC: ANHGOSHLAB 09:36
PROVIDERS: PCP Family Medicine; Visit Provider Obstetrics & Gynecology
DX: D64.9 Anemia, unspecified (principal); I63.81 Other cerebral infarction due to occlusion or stenosis of small artery; R90.82 White matter disease, unspecified; R73.9 Hyperglycemia, unspecified
CPT/HCPCS: 36415; 80061; 83036; 85027

== ENCOUNTER 2025-07-14 09:34 | Outpatient (CLI) | payer OTHER, SELFPAY ==
--- NOTE | ~2025-07-14 | XR_ITS ---
EXAMINATION: XR knee RT 3V, 07/14/2025 9:50 PRODUCTION CONTROLLER HISTORY: Pain in right knee fell on it 1 month ago COMPARISON: No comparisons available. Findings: No acute fracture or malalignment. No significant degenerative changes. Soft tissues unremarkable. Impression: No acute fracture or malalignment. Reviewed, dictated and finalized at location P. UCTION CONTROLLER Impression: No acute fracture or malalignment.
--- NOTE | ~2025-07-14 | XR_ITS ---
EXAMINATION: XR knee LT min 4V, 07/14/2025 9:50 VERTICA ARCHITECT HISTORY: Pain in left knee fell on it 2 weeks ago COMPARISON: No comparisons available. Findings: No acute fracture or malalignment. No significant degenerative changes. Soft tissues unremarkable. Impression: No acute fracture or malalignment. Reviewed, dictated and finalized at location P. ICA ARCHITECT Impression: No acute fracture or malalignment.
== END 2025-07-14 09:35 | disposition home or self-care (01) ==
PROVIDERS: PCP Family Medicine; Visit Provider Student in an Organized Health Care Education/Training Program
DX: M25.562 Pain in left knee (principal); M25.561 Pain in right knee
CPT/HCPCS: 73562; 73564